=== PATIENT | female | born 1960 | race Caucasian/White ===

== ENCOUNTER 2022-09-27 16:34 | Outpatient (CLI) | payer BC, SELFPAY ==
--- NOTE | 2022-09-27 17:15 | CRLHL7_ITS ---
For Patients: As a result of the Cures Act, medical imaging exams and procedure reports are released immediately into your electronic medical record. You may view this report before your referring provider. If you have questions, please contact your health care provider. BILATERAL SCREENING MAMMOGRAM WITH COMPUTER-AIDED DETECTION AND TOMOSYNTHESIS TECHNIQUE: CC and MLO views were obtained. These mammographic images have been obtained using full-field digital technique. These mammographic images were interpreted with the benefit of computer-aided detection. Breast Tomosynthesis was used in this interpretation. COMPARISON FILM: 01/29/21, 12/05/18, 11/29/17. FINDINGS: There are scattered areas of fibroglandular density IMPRESSION: There is no radiographic evidence for malignancy. ASSESSMENT: BI-RADS Category 1: Negative RECOMMENDATION: Routine screening mammogram in 1 year. A lay language report of this examination will be provided to the patient. Dixon Souza M.D. Diagnostic Radiologist [email or web address] Transcribed: 7:42 p.m. ZAHIRA/Dictated by: Dixon Souza MD @ 09/28/2022 10:23:00 AM (Electronically Signed)
== END 2022-09-27 16:35 | disposition home or self-care (01) ==
LOC: MAMMO 16:34
PROVIDERS: PCP Family Medicine; Visit Provider Family Medicine
DX: Z12.31 Encounter for screening mammogram for malignant neoplasm of breast (principal)
CPT/HCPCS: 77063; 77067

== ENCOUNTER 2023-10-17 09:30 | Outpatient (CLI) | payer BC, SELFPAY | END 2023-10-17 09:31 | disposition home or self-care (01) | PROVIDERS: PCP Family Medicine; Visit Provider Family Medicine | DX: H53.8 Other visual disturbances (principal); E78.2 Mixed hyperlipidemia | CPT/HCPCS: 80048; 80061; 85651 ==

== ENCOUNTER 2023-10-18 12:37 | Outpatient (CLI) | payer BC, SELFPAY ==
--- NOTE | 2023-10-18 13:00 | CRLHL7_ITS ---
For Patients: As a result of the Cures Act, medical imaging exams and procedure reports are released immediately into your electronic medical record. You may view this report before your referring provider. If you have questions, please contact your health care provider. BILATERAL SCREENING MAMMOGRAM WITH COMPUTER-AIDED DETECTION AND TOMOSYNTHESIS TECHNIQUE: CC and MLO views were obtained. These mammographic images have been obtained using full-field digital technique. These mammographic images were interpreted with the benefit of computer-aided detection. Breast Tomosynthesis was used in this interpretation. COMPARISON FILM: 09/27/22, 01/29/21, 12/05/18. FINDINGS: There are scattered areas of fibroglandular density IMPRESSION: There is no radiographic evidence for malignancy. ASSESSMENT: BI-RADS Category 2: Benign RECOMMENDATION: Routine screening mammogram in 1 year. A lay language report of this examination will be provided to the patient. Dixon Souza M.D. Diagnostic Radiologist [email or web address] / be/Dictated by: Dixon Souza MD @ 10/19/2023 7:55:00 AM (Electronically Signed)
== END 2023-10-18 12:38 | disposition home or self-care (01) ==
LOC: MAMMO 12:38
PROVIDERS: PCP Family Medicine; Visit Provider Family Medicine
DX: Z12.31 Encounter for screening mammogram for malignant neoplasm of breast (principal)
CPT/HCPCS: 77063; 77067

== ENCOUNTER 2025-01-31 10:00 | Outpatient (CLI) | payer BC, SELFPAY ==
--- NOTE | 2025-01-31 10:15 | CRLHL7_ITS ---
For Patients: As a result of the Century Cures Act, medical imaging exams and procedure reports are released immediately into your electronic medical record. You may view this report before your referring provider. If you have questions, please contact your health care provider. BILATERAL SCREENING MAMMOGRAM WITH COMPUTER-AIDED DETECTION AND TOMOSYNTHESIS TECHNIQUE: CC and MLO views were obtained. These mammographic images have been obtained using full-field digital technique. These mammographic images were interpreted with the benefit of computer-aided detection. Breast Tomosynthesis was used in this interpretation. COMPARISON FILM: 10/18/23, 09/27/22, 01/29/21. FINDINGS: There are scattered areas of fibroglandular density. IMPRESSION: There is no radiographic evidence for malignancy. ASSESSMENT: BI-RADS Category 1: Negative RECOMMENDATION: Routine screening mammogram in 1 year. A lay language report of this examination will be provided to the patient. Dixon Souza M.D. Diagnostic Radiologist [email or web address] SP/Dictated by: Dixon Souza MD @ 01/31/2025 12:56:00 PM (Electronically Signed)
== END 2025-01-31 10:01 | disposition home or self-care (01) ==
LOC: MAMMO 10:01
PROVIDERS: PCP Family Medicine; Visit Provider Family Medicine
DX: Z12.31 Encounter for screening mammogram for malignant neoplasm of breast (principal)
CPT/HCPCS: 77063; 77067